=== PATIENT | male | born 1965 | race Caucasian/White ===

== ENCOUNTER 2017-08-23 18:40 | Emergency (ER) | payer BC ==
[2017-08-23] MEDS ORDERED: traMADol HCl 50 MG TAB ONE (19:01)
[2017-08-23] MEDS ORDERED: Adacel (T-DAP) 0.5 ML VIAL ONE (19:02)
--- NOTE | 2017-08-23 19:49 | RAD ---
LEFT FOOT THREE VIEW 08/23/17 HISTORY: Pain. Recurrent Achilles swelling. COMPARISON: None. FINDINGS: There is severe edema and thickening of the Achilles tendon with enthesopathic changes. No acute disp laced fracture or malalignment. IMPRESSION: Severe thickening and tendinosis of the Achilles tendon. MR recommended for further evaluation for in terstitial tearing. POS: HOME
== END 2017-08-23 20:04 | disposition home or self-care (01) ==
LOC: SCSER 18:40
DX: M76.62 Achilles tendinitis, left leg (principal)
CPT/HCPCS: 90471; 90715

== ENCOUNTER 2017-08-25 15:50 | Outpatient (CLI) | payer BC ==
[2017-08-25 16:10] LABS: Hemoglobin 16.2 g/dL (14.0-18.0); Mean Corpuscular HGB CONC 34.3 g/dL (32.0-36.0); Mean Corpuscular Hemoglobin 28.6 pg (27.0-31.0); Mean Corpuscular Volume 83.2 fl (80.0-94.0); Mean Platelet Volume 6.3 fL (7.4-10.4); Platelet Count 269 thou/uL (130-400); RBC Distribution Width 11.4 % (11.5-14.5); Red Blood Cell (RBC) Count 5.68 mill/uL (4.70-6.10); White Blood Cell (WBC) Count 9.4 thou/uL (4.8-10.8)
== END 2017-08-25 15:51 | disposition home or self-care (01) ==
LOC: LABBT 15:50
PROVIDERS: ATTEND Orthopaedic Surgery
DX: Z01.812 Encounter for preprocedural laboratory examination (principal); L02.612 Cutaneous abscess of left foot
CPT/HCPCS: 85027; 85652; 86140

== ENCOUNTER 2017-08-26 07:16 | Day surgery (SDC) | payer BC ==
[2017-08-25 16:06] VITALS: BMI 29.2
[2017-08-26] MEDS ORDERED: Vancomycin HCl 1.5 GM in Sodium Chloride 0.9% 250 ML 300 ML IVPB SCH (09:45)
[2017-08-26] MEDS ORDERED: Fentanyl 250 MCG/5 ML VIAL ONE (09:46)
[2017-08-26] MEDS ORDERED: HYDROmorphone 0.5 MG/0.5 ML SYRINGE ONE (09:47)
[2017-08-26] MEDS ORDERED: Morphine 4 MG/ML VIAL ONE (11:04)
[2017-08-26] MEDS ORDERED: Ondansetron HCl/PF 4 MG/2 ML Vial ONE (14:43)
[2017-08-26] MEDS ORDERED: Lidocaine 1% PF 5 ML VIAL ONE (14:43)
[2017-08-26] MEDS ORDERED: Dexamethasone 20 MG/5 ML VIAL ONE (14:43)
[2017-08-26] MEDS ORDERED: Ketorolac Tromethamine 30 MG/ML VIAL ONE (14:43)
[2017-08-26] MEDS ORDERED: Propofol 200 MG/20 ML VIAL ONE (14:43)
--- NOTE | 2017-08-26 15:02 | OP ---
DATE OF SURGERY: 09/02/2017 PREOPERATIVE DIAGNOSES: 1. Left heel abscess. 2. History of exostectomy with repair of Achilles, 08/31/2015. PROCEDURE PERFORMED: Incision and drainage of the heel wound. STAFF: Rad Raymundo M.D. ANESTHESIA: Yovanny. The patient received LMA. ESTIMATED BLOOD LOSS: 20 mL. TOURNIQUET TIME: None. IMPLANTS: None. ANTIBIOTICS: Vancomycin 1.5 grams IV x1 dose. CULTURES: x1. COMPLICATIONS: None. HISTORY OF PRESENT ILLNESS: Mr. Clifford is a 52-year-old male who had a removal of heel spur and excisional portion of his Achilles repair on the 08/31/2015. The patient noticed the swelling has healed and 2 years later a superficial area looked like it was infected. I discussed with patient the risks and benefits and I and D to include pain, scar, bleeding, infection to vital structures, decreased range of motion, strength further procedures, continued pain despite surgical intervention. The patient had elevated CRP and ESR. I discussed the risks and benefits, understood he would need to pack wound. I discussed difficulty with some wound healing. The patient understands risks and elected to proceed. PROCEDURE NOTE: Time out was performed designating the patient's left lower extremity as the operative site based on sight, consents, and markings. After completion of the timeout, an incision was made to the previous scar and carried down through skin, culture was taken with some purulence noted, was spread and there were some sutures from the previous repair which was removed. We curretted the defect from the patient's previous anchor placement. I scraped , carried out that area as well as subcu. I washed with a total of 3.5 liters of fluid and packed it open. The patient received vancomycin after taking cultures. The patient will be discharged home with doxycycline and Bactrim for a week. He will follow up with me in 1 week for wound care evaluation. We will continue packing, allowed to heal by secondary intent. JOSE
== END 2017-08-26 12:32 | disposition home or self-care (01) ==
LOC: SDC 07:16
PROVIDERS: ATTEND Orthopaedic Surgery
PROC: 0J9P0ZZ Drainage of Left Lower Leg Subcutaneous Tissue and Fascia, Open Approach (ICD-10-PCS; principal; 2017-08-26)
DX: L02.612 Cutaneous abscess of left foot (principal); B95.61 Methicillin susceptible Staphylococcus aureus infection as the cause of diseases classified elsewhere; Z79.899 Other long term (current) drug therapy; Z98.890 Other specified postprocedural states
CPT/HCPCS: 87070; 87077; 87186; 87205; 96374; J1100; J1170; J1885; J2001; J2270; J2405; J2704; J3010; J3370; J7050

== ENCOUNTER 2018-10-09 07:28 | Outpatient (CLI) | payer BC ==
--- NOTE | 2018-10-09 08:26 | CT ---
PRE AND POSTCONTRAST ENHANCED CT IMAGES ABDOMEN AND PELVIS: HISTORY: Microscopic hematuria, history of calculi. FINDINGS: Pre and postcontrast enhanced images of the abdomen and pelvis obtained. The lung bases are unremarkable. The liver, spleen, gallbladder, pancreas and adrenal glands are unremarkable. No evidence of renal calculi seen. Numerous small hypodense area seen in the right kidney as well as the upper pole of the left kidney l ikely representing tiny cortical cyst. These lesions are too small to characterize. There is a larger 3 cm likely cyst in the lower pole of the left kidney with well-circumscribed margins and no e vidence of significant enhancement. The ureters are unremarkable. No definite evidence of abnormalities or filling defects seen in the ur inary bladder. The small bowel and colon are unremarkable.. IMPRESSION: Likely left renal cortical cyst. Transcribed Date/Time: 10/09/2018 8:40 AM
[2018-10-09] MEDS ORDERED: ISOVUE-370 76%-LOCM 1 ML ONE (16:17)
== END 2018-10-09 07:29 | disposition home or self-care (01) ==
LOC: BICCT 07:28
PROVIDERS: ATTEND Urology
DX: R31.29 Other microscopic hematuria (principal); Z87.442 Personal history of urinary calculi
CPT/HCPCS: 74178; Q9966

== ENCOUNTER 2021-05-02 13:41 | Outpatient (CLI) | payer BC | END 2021-05-02 13:42 | disposition home or self-care (01) | LOC: BICMRI 13:41 | PROVIDERS: ATTEND Orthopaedic Surgery | DX: M47.812 Spondylosis without myelopathy or radiculopathy, cervical region (principal); M25.512 Pain in left shoulder; M89.9 Disorder of bone, unspecified | CPT/HCPCS: 72141 ==

== ENCOUNTER 2023-07-30 09:04 | Outpatient (CLI) | payer BC | END 2023-07-30 09:05 | disposition home or self-care (01) | LOC: DTY/OP 09:04 | PROVIDERS: ATTEND Family Medicine | DX: E11.9 Type 2 diabetes mellitus without complications (principal); Z71.3 Dietary counseling and surveillance | CPT/HCPCS: 97802 ==

== ENCOUNTER 2025-01-06 09:34 | Outpatient (CLI) | payer OTHER | END 2025-01-06 09:35 | disposition home or self-care (01) | LOC: BICCT 09:34 | PROVIDERS: ATTEND Internal Medicine Cardiovascular Disease | DX: R07.9 Chest pain, unspecified (principal); I70.90 Unspecified atherosclerosis | CPT/HCPCS: 75571 ==